=== PATIENT | male | born 1965 | race Caucasian/White ===

== ENCOUNTER 2018-02-16 18:33 | Emergency (ER) | payer OTHER ==
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
[2018-02-16 21:38] VITALS: BP 138/79
== END 2018-02-16 20:00 | disposition home or self-care (01) ==
LOC: ED 18:33
DX: S00.83XA Contusion of other part of head, initial encounter (principal); S09.90XA Unspecified injury of head, initial encounter; Y09 Assault by unspecified means; Y92.9 Unspecified place or not applicable
CPT/HCPCS: 70486; 99282

== ENCOUNTER 2021-06-19 15:06 | Observation (INO) ==
[2021-06-19 16:25] LABS: ABS Eosinophils 0.1 10^3/ul (0-0.6); ABS Lymphocytes 1.2 10^3/ul (1.0-4.8); ABS Monocytes 0.9 10^3/ul (0-0.8); ABS Neutrophils 5.5 10^3/ul (1.5-7.7); Eosinophil % 1.6 %; Hematocrit 44 % (42-52); Hemoglobin 15.2 g/dL (14.0-18.0); Mean Corpuscular HGB Conc 34 g/dL (31-36); Mean Corpuscular Hemoglobin 30 pg (27-31); Mean Corpuscular Volume 88 fL (80-94); Mean Platelet Volume 9.5 fL (7.4-10.4); Platelet Count 195 10^3/uL (150-450); Red Blood Count 4.99 10^6 /uL (4.18-5.48); Red Cell Distribution Width 14 % (10-15); White Blood Count 7.8 10^3/uL (3.5-10.8)
[2021-06-19 16:44] LABS: Albumin 4.2 g/dL (3.2-5.2); Albumin/Globulin Ratio 1.6 (1-3); Calcium 8.9 mg/dL (8.6-10.3); EGFR African American 98.4 (>60); EGFR Non-African American 81.3 (>60); Globulin 2.7 g/dL (2-4); Total Bilirubin 0.5 mg/dL (0.2-1.0); Total Protein 6.9 g/dL (6.4-8.9)
[2021-06-19 16:57] LABS: INR 0.96 (0.86-1.15)
[2021-06-20] MEDS ORDERED: Albuterol HFA INHALER 8 gm MDI INH PRN (02:11)
[2021-06-20 05:58] LABS: ABS Eosinophils 0.2 10^3/ul (0-0.6); ABS Lymphocytes 1.5 10^3/ul (1.0-4.8); ABS Monocytes 0.8 10^3/ul (0-0.8); ABS Neutrophils 4.3 10^3/ul (1.5-7.7); Eosinophil % 2.6 %; Hematocrit 44 % (42-52); Mean Corpuscular HGB Conc 34 g/dL (31-36); Mean Corpuscular Hemoglobin 30 pg (27-31); Mean Corpuscular Volume 88 fL (80-94); Mean Platelet Volume 9.4 fL (7.4-10.4); Platelet Count 175 10^3/uL (150-450); Red Blood Count 4.94 10^6 /uL (4.18-5.48); Red Cell Distribution Width 14 % (10-15); White Blood Count 6.8 10^3/uL (3.5-10.8)
[2021-06-20 06:06] LABS: INR 1.05 (0.86-1.15)
[2021-06-20 06:20] LABS: Albumin 3.9 g/dL (3.2-5.2); Albumin/Globulin Ratio 1.7 (1-3); Calcium 8.5 mg/dL (8.6-10.3); EGFR African American 107.4 (>60); EGFR Non-African American 88.7 (>60); Globulin 2.3 g/dL (2-4); HDL Cholesterol 50.5 mg/dL; Total Bilirubin 0.7 mg/dL (0.2-1.0); Total Protein 6.2 g/dL (6.4-8.9)
[2021-06-20] MEDS ORDERED: Mometasone/Formoter 200/5 MDI INH SCH (09:00)
[2021-06-20 12:56] VITALS: BP 100/67
== END 2021-06-20 14:05 | disposition home or self-care (01) ==
LOC: MEDTELE 15:06 → ED 15:06 → SUATTDRO 06-20 00:13 → MEDTELE 06-20 01:36
PROVIDERS: ADMIT Internal Medicine; ATTEND Internal Medicine